=== PATIENT | female | born 1985 | race Caucasian/White ===

== ENCOUNTER 2017-09-05 12:11 | Day surgery (SDC) | payer MEDICAID ==
[2017-09-05] MEDS: ONDANSETRON 4 MG INJ IV ×2 (12:56→20:12)
[2017-09-05] MEDS: morphine 4 MG/ML VIAL IV (12:57)
[2017-09-05 13:13] LABS: ADD MAN DIFF? NO
[2017-09-05 13:15] LABS: WHITE BLOOD COUNT 15.4 10^3/ul (4.8-10.8)
[2017-09-05 13:15] LABS: BASOPHILS % 0.3 % (0.0-2.0); EOSINOPHILS # 0.1 10^3/ul (0.0-0.5); EOSINOPHILS % 0.3 % (0.0-7.0); HEMATOCRIT 36.8 % (37.0-47.0); HEMOGLOBIN 12.4 g/dl (12.0-16.0); LYMPHOCYTES # 2.3 10^3/ul (0.8-2.9); LYMPHOCYTES % 14.9 % (15.0-51.0); MEAN CORPUSCULAR HEMOGLOBIN 29.9 pg (29.0-33.0); MEAN CORPUSCULAR HGB CONC 33.7 g/dl (32.0-37.0); MEAN CORPUSCULAR VOLUME 88.7 fl (82.0-101.0); MEAN PLATELET VOLUME 9.1 fl (7.4-10.4); MONOCYTE # 0.7 10^3/ul (0.3-0.9); MONOCYTES % 4.4 % (0.0-11.0); NEUTROPHIL # 12.2 10^3/ul (1.6-7.5); NEUTROPHILS % 79.7 % (39.0-77.0); PLATELET COUNT 372 10^3/UL (140-415); RED BLOOD COUNT 4.15 10^6/ul (4.20-5.40); RED CELL DISTRIBUTION WIDTH 13.2 % (11.5-14.5)
[2017-09-05 13:47] LABS: ALANINE AMINOTRANSFERASE 28 IU/L (13-69); ALBUMIN 3.5 g/dl (3.3-4.9); ALBUMIN/GLOBULIN RATIO 1.25; ALKALINE PHOSPHATASE 57 IU/L (42-121); ANION GAP 21 (8-16); ASPARTATE AMINO TRANSFERASE 22 IU/L (15-46); BILIRUBIN,INDIRECT 0.1 mg/dl (0-1.1); BILIRUBIN,TOTAL 0.1 mg/dl (0.2-1.3); BLOOD UREA NITROGEN 17 mg/dl (7-20); CALCIUM 8.1 mg/dl (8.4-10.2); CARBON DIOXIDE 22 mmol/L (21-31); CHLORIDE 111 mmol/L (97-110); CREATININE 0.51 mg/dl (0.44-1.00); GLUCOSE 106 mg/dl (70-220); LIPASE 46 U/L (23-300); POTASSIUM 3.5 mmol/L (3.5-5.1); SODIUM 150 mmol/L (135-144); TOTAL PROTEIN 6.3 g/dl (6.1-8.1)
[2017-09-05 14:18] LABS: ADD UMIC YES; UR ASCORBIC ACID NEGATIVE (NEGATIVE); UR BILIRUBIN (Dip) NEGATIVE (NEGATIVE); UR BLOOD (Dip) 1+ mg/dL (NEGATIVE); UR CLARITY SLIGHTLY CLOUDY (CLEAR); UR COLOR YELLOW (YELLOW); UR GLUCOSE (Dip) NEGATIVE (NEGATIVE); UR KETONES (Dip) 2+ mg/dL (NEGATIVE); UR LEUKOCYTE ESTERASE (Dip) NEGATIVE Leu/ul (NEGATIVE); UR MUCUS FEW /HPF (NONE SEEN); UR NITRITE (Dip) NEGATIVE (NEGATIVE); UR RBC 21 /HPF (0-5); UR SPECIFIC GRAVITY (Dip) 1.024 (1.003-1.030); UR SQUAMOUS EPITHELIAL CELL FEW /HPF (FEW); UR TOTAL PROTEIN (Dip) NEGATIVE (NEGATIVE); UR UROBILINOGEN (Dip) NEGATIVE (NEGATIVE); UR WBC 1 /HPF (0-5)
[2017-09-05] MEDS: SOD CHLORIDE 0.9% 1,000 ML IV (15:20)
[2017-09-05] MEDS: PIPER-TAZO 3.375 GM IV (PMX) 100 ML IVPB (15:20)
[2017-09-05] MEDS ORDERED: NACL 0.9% 3 ML SYG IV (16:00)
[2017-09-05] MEDS ORDERED: DOCUSATE SODIUM 100 MG CAP PO (16:00)
[2017-09-05] MEDS ORDERED: ONDANSETRON 4 MG INJ IV ×3 (16:00→20:00)
[2017-09-05] MEDS ORDERED: ACETAMINOPHEN 325 MG TAB PO ×2 (16:00)
[2017-09-05 16:31] LABS: INR 0.92; PARTIAL THROMBOPLASTIN TIME 28.7 Sec (25.0-35.0); PROTIME 12.4 Sec (11.9-14.9)
[2017-09-05] MEDS: DEXTROSE 5%-0.45% NACL 1,000 ML IV ×2 (17:17→21:27)
[2017-09-05] MEDS ORDERED: SUCCINYLCHOLINE CHLORIDE 100 MG/5 ML SYG IV (17:37)
[2017-09-05] MEDS ORDERED: ROPIVACAINE 0.5 % 30 ML VIAL (17:37)
[2017-09-05] MEDS ORDERED: PROPOFOL 20 ML (17:37)
[2017-09-05] MEDS ORDERED: LIDOCAINE 2% (SDV) 5 ML INJ (17:37)
[2017-09-05] MEDS ORDERED: FENTAnyl 50 MCG/ML VIAL (17:37)
[2017-09-05] MEDS ORDERED: MIDAZOLAM 1 MG/ML 2 ML INJ (17:37)
[2017-09-05] MEDS ORDERED: ROCURONIUM 50 MG INJ (17:37)
[2017-09-05] MEDS ORDERED: SUGAMMADEX SODIUM 200 MG/2 ML VIAL IV ×3 (18:12→19:34)
[2017-09-05] MEDS ORDERED: DIPHENHYDRAMINE 50 MG INJ IV (18:30)
[2017-09-05] MEDS ORDERED: HYDROmorphONE (0.2 MG/ML) 10ML SYG IV ×3 (18:30→20:10)
[2017-09-05] MEDS ORDERED: PROCHLORPERAZINE 10 MG INJ IV (18:30)
[2017-09-05] MEDS ORDERED: FENTAnyl 50 MCG/ML VIAL IV ×3 (18:30)
[2017-09-05] MEDS ORDERED: MEPERIDINE 25 MG INJ IV (18:30)
[2017-09-05] MEDS ORDERED: CEFAZOLIN 1 GM INJ (19:09)
[2017-09-05] MEDS ORDERED: DEXAMETHASONE 4 MG/ML 1 ML INJ (19:14)
[2017-09-05] MEDS ORDERED: FAMOTIDINE 20 MG INJ (19:15)
[2017-09-05] MEDS ORDERED: ONDANSETRON 4 MG INJ ×2 (19:15→20:10)
[2017-09-05] MEDS: BUPIVACAINE 0.25%/EPI (SDV) 30 ML INJ ×2 (19:21→19:30)
[2017-09-05] MEDS ORDERED: KETOROLAC 30 MG INJ (19:46)
[2017-09-05] MEDS ORDERED: OXYCODONE/ACETAMINOPHEN (5/325) TAB PO (20:00)
[2017-09-05] MEDS ORDERED: morphine 2 MG INJ IV (20:00)
[2017-09-05] MEDS: HYDROmorphONE (0.2 MG/ML) 10ML SYG IV (20:13)
[2017-09-05] MEDS: CEFAZOLIN 1 GM/50 ML (PMX) 50 ML IVPB (21:27)
[2017-09-05] MEDS: morphine 2 MG INJ IV (21:39)
[2017-09-05] MEDS ORDERED: PIPER-TAZO 2.25 GM (PMX) 50 ML IVPB (22:00)
[2017-09-06] MEDS: OXYCODONE/ACETAMINOPHEN (5/325) TAB PO ×3 (02:17→14:45)
[2017-09-06] MEDS: CEFAZOLIN 1 GM/50 ML (PMX) 50 ML IVPB ×2 (06:13→14:45)
[2017-09-06 06:21] LABS: ADD MAN DIFF? NO
[2017-09-06 06:39] LABS: BASOPHILS % 0.2 % (0.0-2.0); HEMATOCRIT 33.2 % (37.0-47.0); LYMPHOCYTES # 1.1 10^3/ul (0.8-2.9); LYMPHOCYTES % 8.5 % (15.0-51.0); MEAN CORPUSCULAR HEMOGLOBIN 29.6 pg (29.0-33.0); MEAN CORPUSCULAR HGB CONC 33.1 g/dl (32.0-37.0); MEAN CORPUSCULAR VOLUME 89.2 fl (82.0-101.0); MEAN PLATELET VOLUME 9.6 fl (7.4-10.4); MONOCYTE # 0.3 10^3/ul (0.3-0.9); MONOCYTES % 2.5 % (0.0-11.0); NEUTROPHILS % 88.5 % (39.0-77.0); PLATELET COUNT 300 10^3/UL (140-415); RED BLOOD COUNT 3.72 10^6/ul (4.20-5.40); RED CELL DISTRIBUTION WIDTH 13.7 % (11.5-14.5)
[2017-09-06 06:39] LABS: WHITE BLOOD COUNT 12.4 10^3/ul (4.8-10.8)
[2017-09-06 07:12] LABS: ANION GAP 15 (8-16); BLOOD UREA NITROGEN 12 mg/dl (7-20); CALCIUM 8.7 mg/dl (8.4-10.2); CARBON DIOXIDE 25 mmol/L (21-31); CHLORIDE 105 mmol/L (97-110); CREATININE 0.55 mg/dl (0.44-1.00); GLUCOSE 155 mg/dl (70-220); MAGNESIUM 1.6 mg/dl (1.7-2.5); PHOSPHORUS 3.4 mg/dl (2.5-4.9); POTASSIUM 4.3 mmol/L (3.5-5.1); SODIUM 141 mmol/L (135-144)
[2017-09-06] MEDS: morphine 2 MG INJ IV (07:44)
[2017-09-06] MEDS: ONDANSETRON 4 MG INJ IV (07:44)
== END 2017-09-06 16:23 | disposition home or self-care (01) ==
LOC: SDS 09-06 16:23 → FTE 12:11 → SDS 15:49 → PP2 15:49
DX: K35.80 Unspecified acute appendicitis (principal); E87.0 Hyperosmolality and hypernatremia
CPT/HCPCS: 36415; 71045; 74176; 80048; 80053; 81001; 81025; 83690; 83735; 84100; 85025; 85610; 85730; 88304; 93005; 96374; 96375; 99285-25